=== PATIENT | male | born 1985 | race Caucasian/White ===

== ENCOUNTER 2022-02-22 17:43 | Emergency (ER) | payer SELFPAY ==
[~2022-02-22] VITALS: Ht 167.6 cm; Wt 72.7 kg
[2022-02-22 18:14] VITALS: BP 124/76
[2022-02-22] MEDS ORDERED: QUEtiapine FUMARATE 25 MG TABLET PO ONE (20:45)
== END 2022-02-22 21:44 | disposition home or self-care (01) ==
LOC: EMS 17:43
DX: F20.9 Schizophrenia, unspecified (principal); F32.9 Major depressive disorder, single episode, unspecified; F41.9 Anxiety disorder, unspecified; F15.90 Other stimulant use, unspecified, uncomplicated; F17.210 Nicotine dependence, cigarettes, uncomplicated
CPT/HCPCS: 99283

== ENCOUNTER 2022-03-04 14:08 | Inpatient (IN) | payer MEDICAID ==
[~2022-03-04] VITALS: Ht 170.2 cm; Wt 56.8 kg
[2022-03-04 15:52] LABS: BASOPHILS % (AUTO) 0.8 % (0.0-2.0); EOSINOPHILS % (AUTO) 0.8 % (1.0-6.0); HEMOGLOBIN 13.8 g/dL (13.5-17.5); LYMPHOCYTES # (AUTO) 1.7 K/uL (1.0-4.8); LYMPHOCYTES % (AUTO) 20.4 % (22.0-44.0); MEAN CORPUSCULAR HEMOGLOBIN 29.9 pg (26.0-34.0); MEAN CORPUSCULAR HGB CONC 34.5 G/dL (31.0-37.0); MEAN CORPUSCULAR VOLUME 87 fL (80-100); MONOCYTES # (AUTO) 0.7 K/uL (0.1-1.0); MONOCYTES % (AUTO) 7.7 % (2.0-9.0); NEUTROPHILS # (AUTO) 5.9 K/uL (1.8-7.7); NEUTROPHILS % (AUTO) 70.3 % (40.0-70.0); PLATELET COUNT (AUTO) 318 K/uL (150-450); RED BLOOD CELL COUNT(AUTO) 4.61 MIL/uL (4.50-5.90); RED CELL DISTRIBUTION WIDTH 14.1 % (11.5-14.5)
[2022-03-04 15:59] LABS: ANION GAP 7 mmol/L (8-16); CARBON DIOXIDE 32 mmol/L (22-29); CHLORIDE 102 mmol/L (98-107); CREATININE 0.97 mg/dL (0.60-1.30); GLUCOSE,RANDOM 125 mg/dL (70-110); POTASSIUM 3.5 mmol/L (3.5-5.1); SODIUM SERUM 141 mmol/L (136-145); UREA NITROGEN, BLOOD 21 mg/dL (7-18)
[2022-03-04 16:01] LABS: GLOMERULAR FILTR. RATE CALC > 60 mL/min (>60)
[2022-03-04 16:06] LABS: ALANINE AMINOTRANSFERASE 25 U/L (12-78); ALKALINE PHOSPHATASE 59 U/L (46-116); ASPARTATE AMINOTRANSFERASE 23 U/L (15-37); BILIRUBIN,TOTAL 0.6 mg/dL (0.1-1.0); TOTAL PROTEIN, SERUM 7.3 g/dL (6.4-8.2)
[2022-03-04] MEDS: HALOPERIDOL LACTATE 5 MG/ML VIAL IM ONE ×2 (16:50→17:07)
[2022-03-04] MEDS: DiphenhydrAMINE HCL 50 MG/ML VIAL IM ONE ×2 (16:50→17:07)
[2022-03-04] MEDS: MIDAZOLAM HCL 5 MG/ML VIAL IM ONE ×2 (16:51→17:07)
[2022-03-04] MEDS ORDERED: HALOPERIDOL 5 MG TABLET PO ONE (17:00)
[2022-03-04] MEDS ORDERED: LORazepam 2 MG TABLET PO ONE (17:00)
[2022-03-04] MEDS ORDERED: DiphenhydrAMINE HCL 50 MG CAPSULE PO ONE (17:00)
[2022-03-04 18:38] LABS: COVID AG,FIA SOURCE NASOPHARYNGEAL
[2022-03-04] MEDS ORDERED: LORazepam 2 MG TABLET PO PRN (21:15)
[2022-03-04] MEDS ORDERED: HALOPERIDOL 5 MG TABLET PO PRN (21:15)
[2022-03-04] MEDS ORDERED: ZOLPIDEM TARTRATE 10 MG TABLET PO PRN (21:15)
[2022-03-05 03:58] VITALS: BP 126/70
[2022-03-05] MEDS ORDERED: IBUPROFEN 400 MG TABLET PO PRN (06:45)
[2022-03-05] MEDS ORDERED: DOCUSATE SODIUM 100 MG CAPSULE PO PRN (06:45)
[2022-03-05] MEDS ORDERED: MAGNESIUM HYDROXIDE SUSPENSION 30 ML UDCUP PO PRN (06:45)
[2022-03-05] MEDS ORDERED: CloNIDine HCL 0.1 MG TABLET PO PRN (06:45)
[2022-03-05] MEDS ORDERED: ALBUTEROL SULFATE HFA 90 MCG/PUFF 8 GM INHALER IH PRN (06:45)
[2022-03-05] MEDS ORDERED: ONDANSETRON HCL 4 MG TABLET PO PRN (06:45)
[2022-03-05] MEDS ORDERED: NICOTINE 14 MG/24 HOUR PATCH TD PRN (06:45)
[2022-03-05] MEDS ORDERED: MAG HYDROX/AL HYDROX/SIMETH ES 30 ML SUSPENSION UDCUP PO PRN (06:45)
[2022-03-05] MEDS ORDERED: ACETAMINOPHEN 325 MG TABLET PO PRN (06:45)
[2022-03-05] MEDS ORDERED: GuaiFENesin/D-METHORPHAN [SUGAR-FREE] 200-20MG/10 ML SYRUP UDCUP PO PRN (06:45)
[2022-03-05] MEDS ORDERED: PETROLATUM,WHITE 28 GM JELLY TP PRN (06:45)
[2022-03-05] MEDS ORDERED: LOPERAMIDE HCL 2 MG CAPSULE PO PRN (06:45)
[2022-03-05] MEDS ORDERED: RisperiDONE 1 MG TABLET PO SCH (10:00)
[2022-03-05] MEDS: RisperiDONE 1 MG TABLET PO SCH ×3 (10:24→17:00)
[2022-03-06] MEDS: RisperiDONE 1 MG TABLET PO SCH ×3 (08:05→18:16)
[2022-03-06] MEDS: FLUoxetine HCL 20 MG CAPSULE PO SCH (09:37)
[2022-03-06] MEDS: AMOX TR/POT CLAV 500 MG/125 MG TABLET PO SCH (19:27)
[2022-03-06 20:17] VITALS: BP 118/66
[2022-03-07] MEDS: FLUoxetine HCL 20 MG CAPSULE PO SCH (08:30)
[2022-03-07] MEDS: AMOX TR/POT CLAV 500 MG/125 MG TABLET PO SCH (08:30)
[2022-03-07] MEDS: RisperiDONE 1 MG TABLET PO SCH ×2 (08:30→08:49)
[2022-03-07] MEDS ORDERED: AMOX TR/POT CLAV 500 MG/125 MG TABLET PO SCH (09:00)
[2022-03-07] MEDS ORDERED: PROZ20 PO (12:42)
[2022-03-07] MEDS ORDERED: RISP1TAB98 PO (12:42)
[2022-03-07] MEDS ORDERED: AMOX1TAB15 PO (13:58)
== END 2022-03-07 15:33 | disposition home or self-care (01) | DRG 750 ==
LOC: EMS 14:08 → B3A 03-05 03:28
PROVIDERS: ADMIT Psychiatry & Neurology Child & Adolescent Psychiatry; ATTEND Psychiatry & Neurology Child & Adolescent Psychiatry
DX: F25.0 Schizoaffective disorder, bipolar type (principal); R45.851 Suicidal ideations; Z91.14 Patient's other noncompliance with medication regimen; F10.10 Alcohol abuse, uncomplicated; Z20.822 Contact with and (suspected) exposure to COVID-19; F17.200 Nicotine dependence, unspecified, uncomplicated; R73.9 Hyperglycemia, unspecified; Z71.41 Alcohol abuse counseling and surveillance of alcoholic
CPT/HCPCS: 80053; 85025; 87081; 99285; G0480; J1200; J1630; J2250

== ENCOUNTER 2022-03-06 15:58 | Emergency (ER) | payer MEDICAID ==
[~2022-03-06] VITALS: Ht 167.6 cm; Wt 75.0 kg
[2022-03-06 17:39] VITALS: BP 116/65
[2022-03-07] MEDS ORDERED: PROZ20 PO (12:42)
[2022-03-07] MEDS ORDERED: RISP1TAB98 PO (12:42)
[2022-03-07] MEDS ORDERED: AMOX1TAB15 PO (13:58)
== END 2022-03-06 17:40 | disposition home or self-care (01) ==
LOC: EMS 16:00
DX: T16.2XXA Foreign body in left ear, initial encounter (principal); H93.8X3 Other specified disorders of ear, bilateral; F17.210 Nicotine dependence, cigarettes, uncomplicated; F19.90 Other psychoactive substance use, unspecified, uncomplicated; F41.9 Anxiety disorder, unspecified; F20.9 Schizophrenia, unspecified; F32.A Depression, unspecified; W45.8XXA Other foreign body or object entering through skin, initial encounter; Y93.89 Activity, other specified; Y92.89 Other specified places as the place of occurrence of the external cause; Y99.8 Other external cause status
CPT/HCPCS: 69200; 99284; Z7502

== ENCOUNTER 2022-05-09 16:10 | Inpatient (IN) | payer MEDICAID ==
[~2022-05-09] VITALS: Ht 170.2 cm; Wt 67.9 kg
[~2022-05-09 16:10] MED LIST: AMOX1TAB15 PO; PROZ20 PO; RISP1TAB98 PO
[2022-05-09 19:32] LABS: EOSINOPHILS % (AUTO) 0.8 % (1.0-6.0); HEMATOCRIT 42.5 % (41-53); LYMPHOCYTES # (AUTO) 2.3 K/uL (1.0-4.8); LYMPHOCYTES % (AUTO) 24.9 % (22.0-44.0); MEAN CORPUSCULAR HEMOGLOBIN 30.1 pg (26.0-34.0); MEAN CORPUSCULAR VOLUME 91 fL (80-100); MONOCYTES # (AUTO) 0.7 K/uL (0.1-1.0); MONOCYTES % (AUTO) 7.5 % (2.0-9.0); NEUTROPHILS % (AUTO) 65.8 % (40.0-70.0); PLATELET COUNT (AUTO) 337 K/uL (150-450); RED BLOOD CELL COUNT(AUTO) 4.65 MIL/uL (4.50-5.90); RED CELL DISTRIBUTION WIDTH 13.2 % (11.5-14.5)
[2022-05-09 19:41] LABS: ANION GAP 4 mmol/L (8-16); CALCIUM, TOTAL 9.4 mg/dL (8.8-10.5); CARBON DIOXIDE 33 mmol/L (22-29); CHLORIDE 102 mmol/L (98-107); CREATININE 0.94 mg/dL (0.60-1.30); GLUCOSE,RANDOM 93 mg/dL (70-110); POTASSIUM 4.5 mmol/L (3.5-5.1); SODIUM SERUM 139 mmol/L (136-145); UREA NITROGEN, BLOOD 18 mg/dL (7-18)
[2022-05-09 19:42] LABS: GLOMERULAR FILTR. RATE CALC > 60 mL/min (>60)
[2022-05-09 19:47] LABS: ALANINE AMINOTRANSFERASE 17 U/L (12-78); ALBUMIN 3.5 g/dL (3.4-5.0); ALKALINE PHOSPHATASE 71 U/L (46-116); ASPARTATE AMINOTRANSFERASE 10 U/L (15-37); BILIRUBIN,TOTAL 0.1 mg/dL (0.1-1.0); TOTAL PROTEIN, SERUM 6.8 g/dL (6.4-8.2)
[2022-05-09 22:03] LABS: COVID AG,FIA SOURCE NASOPHARYNGEAL
[2022-05-09] MEDS ORDERED: HALOPERIDOL 5 MG TABLET PO PRN (22:30)
[2022-05-10] MEDS: LORazepam 2 MG TABLET PO PRN ×2 (08:36→18:34)
[2022-05-10 15:16] LABS: APPEARANCE,URINE HAZY (CLEAR); BILIRUBIN,URINE NEGATIVE (NEGATIVE); GLUCOSE, URINE (UA) NEGATIVE (NEGATIVE); KETONES,URINE NEGATIVE (NEGATIVE); LEUKOCYTE ESTERASE ,URINE NEGATIVE (NEGATIVE); NITRATE,URINE NEGATIVE (NEGATIVE); OCCULT BLOOD,URINE NEGATIVE (NEGATIVE); PROTEIN,URINE NEGATIVE (NEGATIVE); SPECIFIC GRAVITIY, URINE 1.011 (1.003-1.030); UROBILINOGEN,URINE <=1.0 mg/dL (<=1.0)
[2022-05-10 15:26] LABS: AMPHET/METH SCREEN,URINE NEGATIVE (NEGATIVE); BARBITURATE SCREEN, URINE NEGATIVE (NEGATIVE); BENZODIAZEPINES SCREEN,URINE NEGATIVE (NEGATIVE); CANNABINOID SCREEN,URINE NEGATIVE (NEGATIVE); COCAINE SCREEN,URINE NEGATIVE (NEGATIVE); METHADONE SCREEN, URINE NEGATIVE (NEGATIVE); OPIATE SCREEN,URINE NEGATIVE (NEGATIVE)
[2022-05-10 15:28] LABS: PHENCYCLIDINE SCREEN,URINE NEGATIVE (NEGATIVE)
[2022-05-10] MEDS: ZOLPIDEM TARTRATE 10 MG TABLET PO PRN (18:34)
[2022-05-11 04:21] VITALS: BP 108/72
[2022-05-11] MEDS: LORazepam 2 MG TABLET PO PRN ×2 (04:24→20:15)
[2022-05-11 08:18] VITALS: BP 128/72
[2022-05-11] MEDS: FLUoxetine HCL 20 MG CAPSULE PO SCH (12:04)
[2022-05-11] MEDS: RisperiDONE 1 MG TABLET PO SCH ×2 (12:04→20:15)
[2022-05-11] MEDS ORDERED: MAGNESIUM HYDROXIDE SUSPENSION 30 ML UDCUP PO PRN (13:00)
[2022-05-11] MEDS ORDERED: PETROLATUM,WHITE 28 GM JELLY TP PRN (13:00)
[2022-05-11] MEDS ORDERED: NICOTINE 14 MG/24 HOUR PATCH TD PRN (13:00)
[2022-05-11] MEDS ORDERED: IBUPROFEN 400 MG TABLET PO PRN (13:00)
[2022-05-11] MEDS ORDERED: ACETAMINOPHEN 325 MG TABLET PO PRN (13:00)
[2022-05-11] MEDS ORDERED: MAG HYDROX/AL HYDROX/SIMETH ES 30 ML SUSPENSION UDCUP PO PRN (13:00)
[2022-05-11] MEDS ORDERED: ALBUTEROL SULFATE HFA 90 MCG/PUFF 8 GM INHALER IH PRN (13:00)
[2022-05-11] MEDS ORDERED: LOPERAMIDE HCL 2 MG CAPSULE PO PRN (13:00)
[2022-05-11] MEDS ORDERED: CloNIDine HCL 0.1 MG TABLET PO PRN (13:00)
[2022-05-11] MEDS ORDERED: ONDANSETRON HCL 4 MG TABLET PO PRN (13:00)
[2022-05-11] MEDS ORDERED: DOCUSATE SODIUM 100 MG CAPSULE PO PRN (13:00)
[2022-05-11] MEDS ORDERED: GuaiFENesin/D-METHORPHAN [SUGAR-FREE] 200-20MG/10 ML SYRUP UDCUP PO PRN (13:00)
[2022-05-11 20:00] VITALS: BP 116/76
[2022-05-12] MEDS: RisperiDONE 1 MG TABLET PO SCH ×3 (09:00→20:13)
[2022-05-12] MEDS: FLUoxetine HCL 20 MG CAPSULE PO SCH (09:05)
[2022-05-12] MEDS: LORazepam 2 MG TABLET PO PRN (20:13)
[2022-05-12 20:22] VITALS: BP 109/64
[2022-05-12] MEDS: ZOLPIDEM TARTRATE 10 MG TABLET PO PRN (20:47)
[2022-05-13] MEDS: FLUoxetine HCL 20 MG CAPSULE PO SCH (08:46)
[2022-05-13] MEDS: RisperiDONE 1 MG TABLET PO SCH ×2 (08:47→20:09)
[2022-05-13] MEDS ORDERED: HALOPERIDOL LACTATE 5 MG/ML VIAL IM ONE (10:00)
[2022-05-13] MEDS ORDERED: DiphenhydrAMINE HCL 50 MG/ML VIAL IM ONE (10:00)
[2022-05-13] MEDS ORDERED: LORazepam 2 MG/ML VIAL IM ONE (10:00)
[2022-05-13] MEDS: ZOLPIDEM TARTRATE 10 MG TABLET PO PRN (20:09)
[2022-05-13] MEDS: LORazepam 2 MG TABLET PO PRN (20:09)
[2022-05-14] MEDS: RisperiDONE 1 MG TABLET PO SCH ×2 (09:09→20:12)
[2022-05-14] MEDS: LORazepam 2 MG TABLET PO PRN ×2 (09:09→18:07)
[2022-05-14] MEDS: FLUoxetine HCL 20 MG CAPSULE PO SCH (09:09)
[2022-05-14 20:00] VITALS: BP 126/78
[2022-05-14] MEDS: ZOLPIDEM TARTRATE 10 MG TABLET PO PRN (20:12)
[2022-05-15 08:24] VITALS: BP 99/66
[2022-05-15] MEDS ORDERED: PROZ20 PO (08:24)
[2022-05-15] MEDS ORDERED: RISP1TAB98 PO (08:24)
[2022-05-15] MEDS: FLUoxetine HCL 20 MG CAPSULE PO SCH (08:52)
[2022-05-15] MEDS: RisperiDONE 1 MG TABLET PO SCH (08:52)
[2022-05-15 10:46] LABS: GLUCOMETER DEV NAME(LOC) POC.BV
== END 2022-05-15 11:00 | disposition home or self-care (01) | DRG 750 ==
LOC: EMS 16:10 → B3A 05-11 03:30
PROVIDERS: ADMIT Psychiatry & Neurology Psychiatry; ATTEND Psychiatry & Neurology Psychiatry
DX: F25.1 Schizoaffective disorder, depressive type (principal); I95.9 Hypotension, unspecified; E87.6 Hypokalemia; F19.10 Other psychoactive substance abuse, uncomplicated; F41.9 Anxiety disorder, unspecified; G47.00 Insomnia, unspecified; K59.00 Constipation, unspecified; T39.1X2A Poisoning by 4-Aminophenol derivatives, intentional self-harm, initial encounter; Z87.891 Personal history of nicotine dependence; Z59.00 Homelessness unspecified; Z91.51 Personal history of suicidal behavior; Z79.899 Other long term (current) drug therapy; Y92.89 Other specified places as the place of occurrence of the external cause
CPT/HCPCS: 80053; 81003; 85025; 99285; G0480; J1200; J1630; J2060